=== PATIENT | male | born 1950 | race Caucasian/White ===

== ENCOUNTER 2025-04-07 10:42 | Outpatient (CLI) | payer MEDICARE, SELFPAY ==
--- NOTE | 2025-04-07 10:50 | ECG_ITS ---
Test Date: 2025-04-07 11:02:02 Measurements Intervals [place] Rate: 53 P: 0 IN: 0 QRS: -15 QRSD: 102 T: 56 QT: 405 QTc: 382 Interpretive Statements sinus BRADYCARDIA with first degree block Poor R wave progression ABNORMAL RHYTHM ECG WARNING: DATA QUALITY MAY AFFECT INTERPRETATION No previous ECG available for comparison Electronically Signed On 04-07-2025 22:17:45 CDT by Von Evans M.D.
--- OUTSIDE RECORDS SUMMARY | 2025-04-07 10:56 | XMS_ITS | Clinical Summary ---
Author Organization [facility] Address [address] [place] [address] Care Team Providers Care Hull Drafter Name Role Phone Unavailable Primary Care Provider Unavailabl e Source Comments [facility],non-owned Affiliates and Associated Physician Practices is amultiple site organization consisting of ambulatory clinics and hospital sitesin [place], [place], [place] and [place]. This disclosure is being madepursuant to the Care Everywhere program and may not contain all information available regarding this patient. Last updated 18.[facility] Allergies No known active allergies Medications * Be aware that medications may not be up to date on this document. Alwaysverify current medications with the patient. aspirin EC (ECOTRIN) 325 MG tablet Take 1 Tab by mouth daily. 0 Active nitroglycerin (NITROSTAT) 0.4 MG tablet Dissolve 1 Tab under the tongue every 5 minutes as needed for Angina. One tab under tongue every 5 min x 3, if no relief after third tablet, please proceed to ER 25 Tab 0 0 Active lisinopril (PRINIVIL;ZESTR IL) 5 MG tablet Take 1 Tab by mouth daily. 30 Tab 0 0 Active carvedilol (COREG) 3.125 MG tablet Take 1 Tab by mouth 2 times daily with breakfast and dinner. 60 Tab 0 0 Active clopidogrel (PLAVIX) 75 MG tablet Take 1 Tab by mouth daily. 30 Tab 0 0 Active Active Problems Problem Noted Date Diagnosed Date Chest pain 08/16/2010 Social History Tobacco Use Types Packs/Day Years Used Date Smoking Tobacco: Never Alcohol Use Standard Drinks/Week Comments Yes 0 (1 standard drink = 0.6 oz pur e alcohol) 6 pk per night Sex and Gender Information Value Date Recorded Sex Assigned at Not on file Legal Sex Male 9:35 AM HAM STRINGER Gender Identity Not on file Sexual Orientation Not on file Last Filed Vital Signs Vital Sign Reading Time Taken Comments Blood Pressure 111/79 08/18/2010 8:24 AM HAM STRINGER Pulse 84 08/18/2010 8:24 AM HAM STRINGER Temperature 36.4 C (97.6 F) 08/18/2010 8:24 AM HAM STRINGER Respiratory Rate 20 08/18/2010 8:24 AM HAM STRINGER Oxygen Saturation 100% 08/18/2010 8:24 AM HAM STRINGER Inhaled Oxygen Concentration - - Weight 77.1 kg (169 lb 15.6 oz) 010 12:40 AM HAM STRINGER Height 177.8 cm (5' 10) 08/16/2010 4:30 AM HAM STRINGER Body Mass Index 24.39 08/16/2010 4:30 AM HAM STRINGER Plan of Treatment Health Maintenance Due Date Last Done Comments COLOGUARD (AGES 45-75) - COL ON CA SCREENING 1951 COLON MONITORING 1950 COLONOSCOPY - COLON CA SCREENING 1950 CT COLONOGRAPHY - COLON CA SCREENING 1950 Colorectal Cancer Screening 1950 FIT - COLON CA SCREENING 1951 FLEX SIG - COLON CA SCREENING 1950 HEPATITIS C SCREENING 04/27/1969 DTAP/TDAP/TD VACCINES (1 - Tdap) 1970 PNEUMOCOCCAL VACCINE 50+ (1 of 1 - PCV) 2001 ZOSTER VACCINE (1 of 2) 2001 LIPID TESTING 08/18/2015 08/18/2010 COVID-19 VACCINE (1 - 2023-2 5 season) 2024 DEPRESSION SCREENING 10/02/2024 INFLUENZA VACCINE (Season Ended) 2025 Respiratory Syncytial Virus (RSV) Vaccine Pt: or over 60 yrs (1 - 1-dose 75+ series) 2026 HEPATITIS B VACCINE Aged Out No longe r eligible based on patient's age to complete this topic HIB VACCINE Aged Out No longer eligi ble based on patient's age to complete this topic HPV VACCINE Aged Out No longer eligi ble based on patient's age to complete this topic MENINGOCOCCAL (Group B) VACC INE SHARED DECISION-MAKING Aged Out No longer eligibl e based on patient's age to complete this topic MENINGOCOCCAL GROUPS A/C/Y/W VACCINE Aged Out No longer eligible b ased on patient's age to complete this topic Procedures Procedure Name Priority Date/Time Associated Diagnosis Comments LIPID PROFILE Routine 08/18/2010 5:30 AM HAM STRINGER from Last 3 Months or Most Recently Relevant to Health Maintenance Results * LIPID PROFILE (08/18/2010 5:30 AM HAM STRINGER) Pathologist [facility] Cholesterol 155 120.0 - 200.0 mg/dl [facility] Triglycerides 117 0.0 - 250.0 mg/dl [facility] HDL Cholesterol 47 >40 mg/dl [facility] LDL Calculated 84.6 mg/dl [facility] Chol HDL Ratio 3.3 [facility] Comment Lipid [facility] Comment: Risk Classification HDL CHOL LDL CHOL TOTAL CHOL According to NCEP (mg/dl) (mg/dL) (mg/dl) Desirable >40 <130 < 200 Borderline/High - 130-159 200-239 High - >159 > 239 The total cholesterol to HDL cholesterol ratio may be used to predict risk for coronary heart disease in untreated patients according to data reported from the [place] Study by Markos Chester M.D. The predictive value in patients over 60 years of age is uncertain. Risk TOTAL CHOL/HDL RATIO MEN WOMEN 1/2 Average 3.43 3.27 Average 4.97 4.44 2X Average 9.55 7.05 3X Average 23.39 11.04 In Coronary Artery Disease patients, in whom nonpharmacological therapy has failed, the AHA recommends that drug therapy should be prescribed to lower LDL cholesterol to <100mg/dL. Drug therapy may be instituted in patients with HDL <35mg/dL. The reported LDL is a calculated result. For a more precise measurement, a direct LDL test is available, as necessary. BLOOD SPECIMEN / Unknown 08/18/2010 5:30 AM HAM STRINGER 08/18/2010 5:40 AM HAM STRINGER Law Hernandez MD LAB - CHEMISTRY ORDERABLES Final Result [facility] [id number] [place] [address] from Last 3 Months or Most Recently Relevant to Health Maintenance Advance Directives * Full Code (Latest Code Status on File) Date Activated Date Inactivated Comments 08/16/2010 7:18 AM 08/19/2010 12:21 AM * Full Code Date Activated Date Inactivated Comments 08/16/2010 6:52 AM 08/16/2010 7:18 AM
--- OUTSIDE RECORDS SUMMARY | 2025-04-07 10:56 | XMS_ITS | Clinical Summary ---
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 Gender Identity Not on file Sexual Orientation Not on file Plan of Treatment Health Maintenance Due Date Last Done Comments Hepatitis C Virus (HCV) Screening 1950 TdaP Immunization 1951 Colonoscopy 1996 Colorectal Cancer Screening 1996 Cologuard 2001 Immunochemical Fecal Occult Blood 2001 Pneumococcal Immunization (5 0+ years) (1 of 1 - PCV) 2001 Zoster Immunization (1 of 2) 2001 Influenza Immunization (#1) 06/02/202407/04, 07/29/2013 SARS-COV-2 Immunization ( season) 2024 08/06/2021, 12/15/2020, 11/17/2020 Respiratory Syncytial Virus (RSV) Immunization (Adult) (1 - 1-dose 75+ series) 2026 Hepatitis B Immunization Aged Out No longer eligible based on patient's age to complete this topic Meningococcal Immunization (ACWY) Aged Out No longer eligible b ased on patient's age to complete this topic Rotavirus Immunization Aged Out No lo nger eligible based on patient's age to complete this topic
== END 2025-04-07 10:43 | disposition home or self-care (01) ==
LOC: ANHSURGERY 10:46
PROVIDERS: Visit Provider Surgery
DX: I25.10 Atherosclerotic heart disease of native coronary artery without angina pectoris (principal); I10 Essential (primary) hypertension; K40.90 Unilateral inguinal hernia, without obstruction or gangrene, not specified as recurrent
CPT/HCPCS: 36415; 86850; 86900; 86901; 93005

== ENCOUNTER 2025-04-10 02:51 | Day surgery (SDC) | payer MEDICARE, SELFPAY ==
[2025-04-02 14:49] VITALS: BMI 26.5
--- NOTE | 2025-04-02 15:04 | PC.NURSE ---
Report to the Outpatient Waiting Room, entrance under the green pavilion located off [facility], at time __1000am on date __04/10/25 . Planned Procedure Time: 1200pm .? Time changes happen often and if your time is changed the preop area will call you the afternoon before. - You and your visitor will be asked to self-screen and do not enter if you have any COVID symptoms. Please call surgeon if you need to reschedule. - A mask is optional within the hospital at this time. Patients may have clear liquids (water, carbonated beverages, clear teas, apple juice) until 3 hours prior to surgery with a maximum of 20 ounces. - No food from midnight until time of surgery and no smoking, or chewing tobacco (or any form of nicotine). No chewing gum, candy or mints.( 09:00am) Take only the following medications with a SIP of water on the morning of surgery: __Amlodipine and Metoprolol DO NOT STOP ANY OF YOUR OTHER PRESCRIPTION MEDICATIONS PRIOR TO SURGERY EXCEPT THE FOLLOWING Hold all vitamins and supplements for 3 days per anesthesiologist. Date to take is 04/06/25 Medications to discontinue per physician None Date to take last dose____None Please no make-up, nail citizen of [place], hairspray, perfume, deodorant, or body powder the day of surgery.? No jewelry (including any body piercings) or valuables the day of surgery, leave them at home.? Please take a shower or bath the night before, or the morning of, surgery with an antibacterial soap.? Wear comfortable, loose fitting clothing.? - Jewelry must be removed prior to entering the operating room.? Rings and piercings that are not removed may be cut off. - The hospital will not accept responsibility for valuables.? - Please leave all valuables, including medications, at home the day of surgery. If you are going home after surgery, a licensed highway truck driver must drive you home.? - NO public transportation without another adult if you receive anesthesia. - We recommend that an adult stay with you for 24 hours following discharge. - We also recommend that you do not drive, make important decision, drink alcoholic beverages, or take any drugs that were not prescribed by your health care provider for at least 24 hours after your discharge time. Follow any additional instructions given to you from your surgeon. Telephone instructions given to ___Patient and asked if any additional questions and then verbalized understanding. Patient advised to call surgeon office or pre surgery nurse liaison [phone] if any additional questions.
--- OUTSIDE RECORDS SUMMARY | 2025-04-10 02:55 | XMS_ITS | Clinical Summary ---
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
--- OUTSIDE RECORDS SUMMARY | 2025-04-10 02:55 | XMS_ITS | Clinical Summary ---
Author Organization [facility] Address [address] [place] [address] Care Team Providers Care Registered Public Surveyor Name Role Phone Unavailable Primary Care Provider Unavailabl e Source Comments [facility],non-owned Affiliates and Associated Physician Practices is amultiple site organization consisting of ambulatory clinics and hospital sitesin [place], [place], [place] and [place]. This disclosure is being madepursuant to the Care Everywhere program and may not contain all information available regarding this patient. Last updated 18.[facility] Allergies No known active allergies Medications * [...] on file Legal Sex Male 9:35 AM TIP MENDER Gender Identity Not on file Sexual Orientation Not on file Last Filed Vital Signs Vital Sign Reading Time Taken Comments Blood Pressure 111/79 08/18/2010 8:24 AM TIP MENDER Pulse 84 08/18/2010 8:24 AM TIP MENDER Temperature 36.4 C (97.6 F) 08/18/2010 8:24 AM TIP MENDER Respiratory Rate 20 08/18/2010 8:24 AM TIP MENDER Oxygen Saturation 100% 08/18/2010 8:24 AM TIP MENDER Inhaled Oxygen Concentration - - Weight 77.1 kg (169 lb 15.6 oz) 010 12:40 AM TIP MENDER Height 177.8 cm (5' 10) 08/16/2010 4:30 AM TIP MENDER Body Mass Index 24.39 08/16/2010 4:30 AM TIP MENDER Plan of Treatment Health Maintenance Due Date [...] Comments LIPID PROFILE Routine 08/18/2010 5:30 AM TIP MENDER from Last 3 Months or Most Recently Relevant to Health Maintenance Results * LIPID PROFILE (08/18/2010 5:30 AM TIP MENDER) Pathologist [facility] Cholesterol 155 120.0 - 200.0 mg/dl [facility] [...] patients according to data reported from the [place] Study by Markos Chester M.D. The predictive [...] BLOOD SPECIMEN / Unknown 08/18/2010 5:30 AM TIP MENDER 08/18/2010 5:40 AM TIP MENDER Law Hernandez MD LAB - CHEMISTRY ORDERABLES Final Result [facility] [id number] [place] [address] from Last 3 Months or Most Recently Relevant to Health Maintenance Advance Directives * Full Code (Latest Code Status on File) Date Activated Date Inactivated Comments 08/16/2010 7:18 AM 08/19/2010 12:21 AM * Full Code Date Activated Date Inactivated Comments 08/16/2010 6:52 AM 08/16/2010 7:18 AM
[2025-04-10 10:40] VITALS: BP 130/72; PULSE 57; RESP 16; TEMP 37.1; O2SAT 100
[2025-04-10] MEDS: ACETAMINOPHEN 500 MG TABLET 1000 MG PO (10:40)
[2025-04-10] MEDS: KETOROLAC 15 MG/ML VIAL (*BKC) IV PUSH (10:40)
[2025-04-10] MEDS: LACTATED RINGERS 1,000 ML 30 ML IV CONT ×3 (10:40→14:52)
--- NOTE | 2025-04-10 11:51 | WPDANESEPPF ---
Anes - Initial Pre Proc Eval Procedure: Operation Date: 04/10/25 12:00 Proposed Procedures p Robotic Assisted Left Inguinal Hernia Repair with Mesh - Monica Brown MD Date/Time: 04/10/25 11:51 Surgeon: Monica Brown MD Pre Op Diagnosis: Lt Ing Hernia Patient Data Age: 74 Gender: M Height: 1.78 m Weight: 83.4 kg Last Vital Signs Temp 98.8 F 04/10/25 10:40 Pulse 57 L 04/10/25 10:40 Resp 16 04/10/25 10:40 BP 130/72 04/10/25 10:40 Pulse Ox 100 04/10/25 10:40 O2 Del Method Room Air 04/10/25 10:40 Allergies Allergy/AdvReac Type Severity Reaction Status Date / Time No Known Allergies Allergy Verified 04/10/25 10:51 Home Medications ?Medication ?Instructions ?Recorded ?Confirmed ?Type amlodipine 10 mg tablet 10 mg PO DAILY 02/26/25 04/10/25 History aspirin 81 mg tablet 81 mg PO DAILY 02/26/25 04/10/25 History lisinopril 40 mg tablet 40 mg PO DAILY 02/26/25 04/02/25 History metoprolol succinate 50 mg 50 mg PO BID 02/26/25 04/10/25 History tablet,extended release 24 hr simvastatin 10 mg tablet 10 mg PO DAILY 02/26/25 04/02/25 History simvastatin 20 mg tablet 20 mg PO DAILY 02/26/25 04/02/25 History Patient hx anesthesia problems: none Family hx anesthesia problems: none Results Review: All pre-operative results and documents have been reviewed as part of the pre-operative evaluation. [facility] Past Medical History Medical History (Updated 02/26/25 @ 11:05 by Rebeka Stout CMA) Hypertension Heart attack Cancer Arthritis Surgical History Surgical History (Updated 02/26/25 @ 10:45 by Kayden Morgan MA) H/O right inguinal hernia repair 2008 H/O aortic valve replacement 2011 Family History Family History (Updated 02/26/25 @ 10:46 by Kayden Morgan MA) Father Malignant neoplasm of prostate Mother Heart disease Hypertension Cerebrovascular accident Social History Social History (Updated 02/26/25 @ 10:54 by Kayden Morgan MA) Smoking status: Never smoker Alcohol intake: current Drinks per week: 28 Alcohol use details: 4 before bed Substance use: never Substance use type: does not use Current Housing: Decline to Answer Concerned About Future Housing: Decline to Answer Difficulty Paying Gas/Electric Bills: Decline to Answer Difficulty Paying for Meds: Decline to Answer Currently Unemployed: Decline to Answer Education: Decline to Answer Difficulty w/ Childcare or Family Care: Decline to Answer Living arrangements: alone Occupation/Education: retired Spiritual care concerns: No Agree to blood products: Yes Anes - Eval Final PreProcedure Day of Procedure 04/10/25 11:51 Patient weight: normal Heart: regular rate and rhythm Lungs: clear to auscultation Airway: Mallampati scale class II Neurological: alert and oriented Last oral intake: >/= 8 hours ASA classification: III Emergent: no Anesthetic plan: proceed Anesthesia type and monitoring: general ETT and standard monitoring Results Review: All pre-operative results and documents have been reviewed as part of the pre-operative evaluation. Informed Consent: The patient's anesthetic plan and its attendant risks and benefits were discussed with the patient/family/POA. Questions were solicited and answers provided to the satisfaction of the patient/family/POA.
--- NOTE | 2025-04-10 12:02 | PM.IMHP ---
H&P: HPI History of Present Illness Date/Time: 04/10/25 12:02 Chief Complaint: left inguinal hernia Narrative: Reji is a 74 y/o male who presents to the office at the request of Jae Grande MD for an evaluation of a left inguinal hernia. Patient reports he has had a reducible bulge in his left groin for approximately 6 months to 1 year. He denies pain, states he tolerates a normal diet and having regular BM's and urine output. Patient has a history of right inguinal hernia repair and aortic valve replacement in 2011. Review of Systems Review of Systems: All systems reviewed & are unremarkable except as noted in HPI and below PMFSH Past Medical History Medical History Hypertension Heart attack Cancer Arthritis Surgical History Surgical History H/O right inguinal hernia repair 2008 H/O aortic valve replacement 2011 Family History Family History Father Malignant neoplasm of prostate Mother Heart disease Hypertension Cerebrovascular accident Social History Social History Smoking status: Never smoker Alcohol intake: current Drinks per week: 28 Alcohol use details: 4 before bed Substance use: never Substance use type: does not use Current Housing: Decline to Answer Concerned About Future Housing: Decline to Answer Difficulty Paying Gas/Electric Bills: Decline to Answer Difficulty Paying for Meds: Decline to Answer Currently Unemployed: Decline to Answer Education: Decline to Answer Difficulty w/ Childcare or Family Care: Decline to Answer Living arrangements: alone Occupation/Education: retired Spiritual care concerns: No Agree to blood products: Yes Meds Home Medications and Allergies Home Medications ?Medication ?Instructions ?Recorded ?Confirmed ?Type amlodipine 10 mg tablet 10 mg PO DAILY 02/26/25 04/10/25 History aspirin 81 mg tablet 81 mg PO DAILY 02/26/25 04/10/25 History lisinopril 40 mg tablet 40 mg PO DAILY 02/26/25 04/02/25 History metoprolol succinate 50 mg 50 mg PO BID 02/26/25 04/10/25 History tablet,extended release 24 hr simvastatin 10 mg tablet 10 mg PO DAILY 02/26/25 04/02/25 History simvastatin 20 mg tablet 20 mg PO DAILY 02/26/25 04/02/25 History Allergies Allergy/AdvReac Type Severity Reaction Status Date / Time No Known Allergies Allergy Verified 04/10/25 10:51 Vital Signs Vital Signs - 24 hr 04/10/25 10:40 Temperature 37.1 C Pulse Rate 57 L Respiratory Rate 16 Blood Pressure 130/72 Pulse Oximetry 100 Oxygen Delivery Room Air Exam Const: General: cooperative, comfortable and no acute distress HENMT: Head: normal to inspection Resp: Auscultation: clear to auscultation bilaterally Cardio: Rate: regular rate Rhythm: regular rhythm GI: Inspection: normal to inspection and non-distended GI Palp: No abdominal tenderness, Yes Soft to palpation and Yes Hernia present Other: reducible LIH Assessment and Plan Assessment and plan (1) Left inguinal hernia: Code(s): K40.90 - Unilateral inguinal hernia, without obstruction or gangrene, not specified as recurrent Status: Acute Assessment and Plan: robotic assisted LIH repair c mesh
--- NOTE | 2025-04-10 12:04 | WPDHPUPDATE1 ---
History and Physical Update Update Date/Time: 04/10/25 12:04 History and Physical has been reviewed, including an updated exam of the patient. There are NO changes in the patient's condition. Risks, benefits, and alternatives have been discussed and questions answered. Patient agrees to proceed with procedure.
[2025-04-10] MEDS: ceFAZolin 2 GM in SODIUM CHLORIDE 0.9% IV 50 ML 100 ML IVPB (12:11)
[2025-04-10] MEDS: BUPIVACAINE/EPINEPHRINE 0.5% 30 ML VIAL INFILTRATE (12:35)
[2025-04-10 13:38] VITALS: BP 114/68; PULSE 64; RESP 14; TEMP 36.9; O2SAT 100
--- NOTE | 2025-04-10 13:54 | W.PM.PROC2 ---
Procedure Note - Detailed Date of Procedure 04/10/25 Pre-op Diagnosis left inguinal hernia Post-op Diagnosis Same Procedure Performed robotic assisted left inguinal hernia repair with mesh Surgeon Monica Brown MD Anesthesia General Indications 74 y/o M c LIH and worsening groin pain over last year Findings indirect left inguinal hernia Description of Procedure Patient was brought into the operating room and placed in the supine position. After adequate induction of general anesthesia, the patient was prepped and draped in normal sterile fashion. A time-out was then done to verify the patient's identity, as well as the procedure being performed. I began by making a 8 mm incision in the supraumbilical region, a Veress needle was then placed into the peritoneal cavity. CO2 gas was then insufflated and after adequate pneumoperitoneum was achieved, the Veress needle was removed. I then placed an 8 mm trocar through this incision. I then placed the endoscope through this trocar site and under direct visualization placed 2 further 8 mm ports in the right and left mid abdomen. The [employer] robot was then docked to the 3 trocar sites. I then scrubbed out and went to the robotic console. Upon examining the pelvis, it was noted that the patient had a moderate left inguinal hernia. The right side was examined and no hernia defect was noted. I began by making a preperitoneal flap approximately 6 cm superior to the defect. This flap was carried medially past the umbilical ligaments and laterally to the transversalis. It then began dissection of my medial compartment taking this down to the pubic tubercle. I then began the lateral dissection taking this down to the transversalis fascia. Once these compartments were achieved, I began dissection around the cord structures. A moderate sized indirect hernia was noted at this point. Using careful dissection, was able to reduce indirect hernia sac off the cord structures. Once this was adequately done, I went ahead and placed a large piece of 3D Max mesh into the abdominal cavity. The mesh was carefully positioned, centering the center of the mesh over the indirect defect. Once this was done, was very satisfied with our repair. Using 3-0 Vicryl sutures, I tacked the mesh medially to Hunter's ligament. Two lateral sutures were placed from the mesh to the transversalis fascia. I then closed the peritoneal flap with a running 2.0 V Lock suture. The abdomen was then desufflated, and all ports were removed. All incisions were then closed with the 4.0 monocryl suture. Dermabond was placed on each wound. The patient tolerated the procedure well, was extubated in the operating room postoperatively, and will now be transferred to the recovery room in stable condition. Implants large 3DMax mesh Estimated Blood Loss 10 Drains No Packing No Pathology None sent Complications No immediate complications Condition Stable Disposition PACU [facility] Billing Surgery - Charge Forward: Surgery Billing
[2025-04-10 13:55] VITALS: BP 114/71; PULSE 53; RESP 14; O2SAT 100
[2025-04-10 14:09] VITALS: BP 124/83; PULSE 55; RESP 16; O2SAT 100
[2025-04-10] MEDS: fentaNYL CITRATE INJ (*CRX) 100 MCG/2 ML VIAL 25 MCG IV PUSH (14:25)
[2025-04-10 14:30] VITALS: BP 130/66; PULSE 53; RESP 16
[2025-04-10] MEDS: oxyCODONE HCL (*CRX) 5 MG TAB IR PO (14:52)
[2025-04-10 15:00] VITALS: BP 131/73; PULSE 60; RESP 16
--- NOTE | 2025-04-10 15:49 | SUR.PHASEII ---
1520 DRESSED, WAITING FOR RIDE.
== END 2025-04-10 15:50 | disposition home or self-care (01) ==
PROVIDERS: PCP Internal Medicine; Visit Provider Surgery
PROC: 8E0Y4CZ Robotic Assisted Procedure of Lower Extremity, Percutaneous Endoscopic Approach (ICD-10-PCS; CPT 49650; principal; 2025-04-10 12:00)
DX: K40.90 Unilateral inguinal hernia, without obstruction or gangrene, not specified as recurrent (principal); I10 Essential (primary) hypertension; I25.2 Old myocardial infarction; M19.90 Unspecified osteoarthritis, unspecified site; Z79.82 Long term (current) use of aspirin; Z98.890 Other specified postprocedural states; Z95.2 Presence of prosthetic heart valve; Z85.9 Personal history of malignant neoplasm, unspecified; Z80.42 Family history of malignant neoplasm of prostate; Z82.49 Family history of ischemic heart disease and other diseases of the circulatory system
CPT/HCPCS: 49650; S2900; J0690; A9270; C1781; J1100; J1885; J2003; J2405; J2704; J3010; J7030; J7120

== ENCOUNTER 2025-08-21 10:51 | Day surgery (SDC) | payer MEDICARE, SELFPAY ==
[2025-08-05 12:09] VITALS: BMI 25.8
[2025-08-21 11:06] VITALS: BP 114/86; PULSE 60; RESP 18; TEMP 36.6; O2SAT 100
--- NOTE | 2025-08-21 11:14 | WPDANESEPPF ---
Anes - Initial Pre Proc Eval Procedure: Operation Date: 08/21/25 14:30 Proposed Procedures p Diagnostic Colonoscopy - Nelson Du MD Date/Time: 08/21/25 11:14 Surgeon: Nelson Du MD Pre Op Diagnosis: Diverticulosis of large intestine without perforat Patient Data Age: 75 Gender: M Height: 1.78 m Weight: 83.9 kg Last Vital Signs Temp 36.6 C 08/21/25 11:06 Pulse 60 08/21/25 11:06 Resp 18 08/21/25 11:06 BP 114/86 08/21/25 11:06 Pulse Ox 100 08/21/25 11:06 O2 Del Method Room Air 08/21/25 11:06 Allergies Allergy/AdvReac Type Severity Reaction Status Date / Time No Known Allergies Allergy Verified 08/05/25 12:08 Home Medications ?Medication ?Instructions ?Recorded ?Confirmed ?Type amlodipine 10 mg tablet 10 mg PO DAILY 02/26/25 08/21/25 History aspirin 81 mg tablet 81 mg PO DAILY 02/26/25 08/21/25 History lisinopril 40 mg tablet 40 mg PO DAILY 02/26/25 08/21/25 History metoprolol succinate 50 mg 50 mg PO BID 02/26/25 08/21/25 History tablet,extended release 24 hr simvastatin 10 mg tablet 10 mg PO DAILY 02/26/25 08/21/25 History simvastatin 20 mg tablet 20 mg PO DAILY 02/26/25 08/21/25 History Patient hx anesthesia problems: none Family hx anesthesia problems: none Results Review: All pre-operative results and documents have been reviewed as part of the pre-operative evaluation. [facility] Past Medical History Medical History Hypertension Heart attack Cancer Arthritis Surgical History Surgical History Hx of inguinal hernia repair 04/10/25 robotic assisted left inguinal hernia repair with mesh Dr. Brown H/O right inguinal hernia repair 2008 H/O aortic valve replacement 2011 Family History Family History Father Malignant neoplasm of prostate Mother Heart disease Hypertension Cerebrovascular accident Social History Social History Smoking status: Never smoker Alcohol intake: current Drinks per week: 28 Alcohol use details: beer Substance use: never Substance use type: does not use Current Housing: Decline to Answer Concerned About Future Housing: Decline to Answer Difficulty Paying Gas/Electric Bills: Decline to Answer Difficulty Paying for Meds: Decline to Answer Currently Unemployed: Decline to Answer Education: Decline to Answer Difficulty w/ Childcare or Family Care: Decline to Answer Living arrangements: alone Occupation/Education: retired Spiritual care concerns: No Agree to blood products: Yes Anes - Eval Final PreProcedure Day of Procedure 08/21/25 11:14 Patient weight: overweight Heart: regular rate and rhythm Lungs: clear to auscultation Airway: Mallampati scale class II Neurological: alert and oriented Last oral intake: >/= 8 hours ASA classification: III Emergent: no Anesthetic plan: proceed Anesthesia type and monitoring: general GIVS and standard monitoring Results Review: All pre-operative results and documents have been reviewed as part of the pre-operative evaluation. Informed Consent: The patient's anesthetic plan and its attendant risks and benefits were discussed with the patient/family/POA. Questions were solicited and answers provided to the satisfaction of the patient/family/POA.
[2025-08-21] MEDS: GENTAMICIN 80MG/SOD CHL 50 ML 80 MG/50 ML BAG 100 MG IVPB (11:17)
[2025-08-21] MEDS: LACTATED RINGERS 1,000 ML 150 ML IV CONT (11:17)
[2025-08-21] MEDS: AMPICILLIN SODIUM 2 GM in SODIUM CHLORIDE 0.9% IV 100 ML 200 ML IVPB (12:00)
--- NOTE | 2025-08-21 12:21 | PM.HPGS ---
History of Present Illness History of Present Illness Consent: Risks, benefits, and alternatives have been discussed and questions answered. Patient agrees to proceed with procedure. Chief complaint: colon screen Narrative: Reji Savage is a 75 year old male here for screening colonoscopy Review of Systems Review of Systems: All systems reviewed & are unremarkable except as noted in HPI and below [facility] Past Medical History Medical History (Updated 08/21/25 @ 12:21 by Nelson Du MD) Colon cancer screening Hypertension Heart attack Cancer Arthritis Surgical History Surgical History Hx of inguinal hernia repair 04/10/25 robotic assisted left inguinal hernia repair with mesh Dr. Brown H/O right inguinal hernia repair 2008 H/O aortic valve replacement 2011 Family History Family History Father Malignant neoplasm of prostate Mother Heart disease Hypertension Cerebrovascular accident Social History Social History Smoking status: Never smoker Alcohol intake: current Drinks per week: 28 Alcohol use details: beer Substance use: never Substance use type: does not use Current Housing: Decline to Answer Concerned About Future Housing: Decline to Answer Difficulty Paying Gas/Electric Bills: Decline to Answer Difficulty Paying for Meds: Decline to Answer Currently Unemployed: Decline to Answer Education: Decline to Answer Difficulty w/ Childcare or Family Care: Decline to Answer Living arrangements: alone Occupation/Education: retired Spiritual care concerns: No Agree to blood products: Yes Meds Home Medications and Allergies Home Medications ?Medication ?Instructions ?Recorded ?Confirmed ?Type amlodipine 10 mg tablet 10 mg PO DAILY 02/26/25 08/21/25 History aspirin 81 mg tablet 81 mg PO DAILY 02/26/25 08/21/25 History lisinopril 40 mg tablet 40 mg PO DAILY 02/26/25 08/21/25 History metoprolol succinate 50 mg 50 mg PO BID 02/26/25 08/21/25 History tablet,extended release 24 hr simvastatin 10 mg tablet 10 mg PO DAILY 02/26/25 08/21/25 History simvastatin 20 mg tablet 20 mg PO DAILY 02/26/25 08/21/25 History Allergies Allergy/AdvReac Type Severity Reaction Status Date / Time No Known Allergies Allergy Verified 08/05/25 12:08 Vital Signs Vital Signs - 24 hr 08/21/25 11:06 Temperature 97.9 F Pulse Rate 60 Respiratory Rate 18 Blood Pressure 114/86 Pulse Oximetry 100 Oxygen Delivery Room Air Exam Const: General: comfortable and no acute distress HENMT: Face/Nose/Sinus: Normal nares present Eyes: General: appearance normal, both eyes and all related structures Resp: Auscultation: clear to auscultation bilaterally Cardio: Rate: regular rate Rhythm: regular rhythm GI: Inspection: non-distended GI Palp: Yes Soft to palpation Skin: General skin exam: normal color Extrem: General: normal to inspection Psych: Mental Status: mental status grossly normal Assessment and Plan Assessment and plan (1) Colon cancer screening: Code(s): Z12.11 - Encounter for screening for malignant neoplasm of colon Status: Acute Assessment and Plan: colonoscopy
--- NOTE | 2025-08-21 12:32 | S_PTH ---
PATIENT: Reji Savage LOC: [facility]#:[id number] AGE/SX: 75/M ROOM: RE08/21/[address]: Nelson Du MD : 1950 BED: DIS: 08/21/2025 SPEC #: [id number] RECD: 08/21/25 13:14 STATUS: KEVIN RESamuel #: [id number] CECY: 08/21/25 12:[address]: Nelson Du DEPT: [facility] Surgical RECD BY: Michelle Krause ENTERED: 08/21/25 13:14 SP TYPE: Surgical OTHR DR: Jae Grande, Tissues: A - Colon Polypectomy Procedures: Hematoxylin and Eosin Stain Gross and Microscopic Level 4
[2025-08-21 12:39] VITALS: BP 87/58; PULSE 62; RESP 17; O2SAT 99
[2025-08-21 12:49] VITALS: BP 103/71; PULSE 58; RESP 17; O2SAT 100
[2025-08-21 12:59] VITALS: BP 106/74; PULSE 58; RESP 16; O2SAT 100
--- OUTSIDE RECORDS SUMMARY | 2025-08-21 13:19 | XMS_ITS | Clinical Summary ---
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 Name Role Phone Unavailable Primary Care Provider Unavailabl e Social History Tobacco Use Types Packs/Day Years Used Date Smoking Tobacco: Never Assessed Sex and Gender Information Value Date Recorded Sex Assigned at Not on file Legal Sex Male 2:41 PM [employer] Gender Identity Not on file Sexual Orientation Not on file Plan of Treatment Health Maintenance Due Date Last Done Comments Hepatitis C Virus (HCV) Screening 1950 TdaP Immunization 1950 Cologuard 1996 Colonoscopy 1996 Colorectal Cancer Screening 1996 Immunochemical Fecal Occult Blood 1996 Pneumococcal Immunization (5 0+ years) (1 of 1 - PCV) 2001 Zoster Immunization (1 of 2) 2001 Influenza Immunization (#1) 06/02/202507/04, 07/29/2013 SARS-COV-2 Immunization ( season) 2025 08/06/2021, 12/15/2020, 11/17/2020 Respiratory Syncytial Virus (RSV) Immunization (Adult) (1 - 1-dose 75+ series) 2026 Hepatitis B Immunization Aged Out No longer eligible based on patient's age to complete this topic Human Papillomavirus (HPV) Immunization Aged Out No longer eligible b ased on patient's age to complete this topic Meningococcal Immunization (ACWY) Aged Out No longer eligible b ased on patient's age to complete this topic Rotavirus Immunization Aged Out No lo nger eligible based on patient's age to complete this topic
== END 2025-08-21 13:13 | disposition home or self-care (01) ==
PROVIDERS: PCP Internal Medicine; Visit Provider Internal Medicine Gastroenterology
PROC: 0DJD8ZZ Inspection of Lower Intestinal Tract, Via Natural or Artificial Opening Endoscopic (ICD-10-PCS; CPT 45378; principal; 2025-08-21 14:30)
DX: Z12.11 Encounter for screening for malignant neoplasm of colon (principal); K63.5 Polyp of colon; K64.8 Other hemorrhoids; K57.30 Diverticulosis of large intestine without perforation or abscess without bleeding; I10 Essential (primary) hypertension; I25.2 Old myocardial infarction; M19.90 Unspecified osteoarthritis, unspecified site; Z79.82 Long term (current) use of aspirin; Z98.890 Other specified postprocedural states; Z95.2 Presence of prosthetic heart valve; Z85.9 Personal history of malignant neoplasm, unspecified; Z80.42 Family history of malignant neoplasm of prostate; Z82.49 Family history of ischemic heart disease and other diseases of the circulatory system
CPT/HCPCS: 45385; 88305; J0290; J1580; J2003; J2704; J7120